=== PATIENT | female | born 1970 ===

== ENCOUNTER 2023-03-02 05:51 | Day surgery (SDC) | payer OTHER ==
[2023-02-26 12:19] VITALS: BMI 37.3
[2023-03-02] MEDS ORDERED: Betamet Acet/Betamet Na Ph 30 MG/5 ML VIAL ONE (06:15)
[2023-03-02] MEDS ORDERED: Bupivacaine PF 0.5% 30 ML VIAL ONE (06:15)
[2023-03-02] MEDS ORDERED: Neomycin-Polymyxin 1 ML AMP ONE (06:15)
[2023-03-02] MEDS ORDERED: Bacitracin Zinc Ointment 30 gm TUBE ONE (06:15)
[2023-03-02] MEDS ORDERED: Sodium Chloride 0.9% 100 ML ONE (07:01)
[2023-03-02] MEDS ORDERED: CEFAZOLIN 2 GM VIAL ONE (07:01)
[2023-03-02] MEDS ORDERED: Ondansetron PF 4 MG/2 ML Vial ONE (07:12)
[2023-03-02] MEDS ORDERED: Lidocaine 1% PF 5 ML VIAL ONE (07:12)
[2023-03-02] MEDS ORDERED: PROPOFOL 200 MG/20 ML VIAL ONE (07:12)
[2023-03-02] MEDS ORDERED: ePHEDrine Sulfate 50 MG/10 ML VIAL ONE (07:12)
== END 2023-03-02 10:00 ==
LOC: SDC 05:51
PROVIDERS: ATTEND Orthopaedic Surgery Hand Surgery
PROC: 0LN70ZZ Release Right Hand Tendon, Open Approach (ICD-10-PCS; principal; 2023-03-02)
DX: M65.311 Trigger thumb, right thumb (principal); M65.321 Trigger finger, right index finger; M65.331 Trigger finger, right middle finger; M65.341 Trigger finger, right ring finger; M65.841 Other synovitis and tenosynovitis, right hand; M67.441 Ganglion, right hand; E11.9 Type 2 diabetes mellitus without complications; I10 Essential (primary) hypertension; K21.9 Gastro-esophageal reflux disease without esophagitis; E78.5 Hyperlipidemia, unspecified; Z79.1 Long term (current) use of non-steroidal anti-inflammatories (NSAID); Z79.4 Long term (current) use of insulin; Z79.82 Long term (current) use of aspirin; Z79.84 Long term (current) use of oral hypoglycemic drugs; Z79.899 Other long term (current) drug therapy
CPT/HCPCS: 36416; J0702; J2405; J2704; J3490; S0020

== ENCOUNTER 2023-06-17 06:14 | Day surgery (SDC) | payer OTHER ==
[2023-06-15 15:25] VITALS: BMI 41.1
[2023-06-17] MEDS ORDERED: Lidocaine 1% PF 5 ML VIAL ONE (08:04)
[2023-06-17] MEDS ORDERED: PROPOFOL 200 MG/20 ML VIAL ONE (08:04)
== END 2023-06-17 09:35 | disposition home or self-care (01) ==
LOC: SDC 06:14
PROVIDERS: ATTEND Internal Medicine
PROC: 0D758ZZ Dilation of Esophagus, Via Natural or Artificial Opening Endoscopic (ICD-10-PCS; principal; 2023-06-17)
PROC: 0DB68ZX Excision of Stomach, Via Natural or Artificial Opening Endoscopic, Diagnostic (ICD-10-PCS; principal; 2023-06-17)
PROC: 0DBN8ZX Excision of Sigmoid Colon, Via Natural or Artificial Opening Endoscopic, Diagnostic (ICD-10-PCS; principal; 2023-06-17)
DX: K21.9 Gastro-esophageal reflux disease without esophagitis (principal); K64.8 Other hemorrhoids; K52.9 Noninfective gastroenteritis and colitis, unspecified; R13.10 Dysphagia, unspecified; D50.9 Iron deficiency anemia, unspecified; F41.9 Anxiety disorder, unspecified; F32.A Depression, unspecified; E11.9 Type 2 diabetes mellitus without complications; Z98.51 Tubal ligation status; Z90.710 Acquired absence of both cervix and uterus; Z90.49 Acquired absence of other specified parts of digestive tract; Z79.82 Long term (current) use of aspirin; Z86.010 Personal history of colon polyps; Z79.899 Other long term (current) drug therapy; Z87.891 Personal history of nicotine dependence
CPT/HCPCS: 36416; 88305; J2704

== ENCOUNTER 2023-09-27 16:37 | Observation (INO) | payer OTHER ==
[~2023-09-27 16:37] MED LIST: Iopamidol-370 76% 500 ML MDV (1 ML CHARGE) ONE
[2023-09-27 18:13] LABS: #Monocytes 0.3 thou/uL (0.11-0.59); #Neutrophils 9.4 thou/uL (1.40-6.50); %Basophils 0.3 % (0.0-1.0); %Eosinophils 0.1 % (0.0-10.0); %Lymphocytes 16.7 % (21.0-51.0); %Monocytes 2.4 % (0.0-10.0); %Neutrophils 79.8 % (42.0-75.0); Hematocrit 39.5 % (36.0-47.0); Hemoglobin 12.5 g/dL (12.0-16.0); Mean Corpuscular HGB CONC 31.6 g/dL (32.0-36.0); Mean Corpuscular Hemoglobin 25.8 pg (27.0-31.0); Mean Corpuscular Volume 81.6 fl (78.0-98.0); Mean Platelet Volume 10.2 fL (7.4-10.4); Platelet Count 421 10x3/uL (130-400); RBC Distribution Width 15.6 % (11.5-14.5); Red Blood Cell (RBC) Count 4.84 mill/uL (4.20-5.40); White Blood Cell (WBC) Count 11.7 10x3/uL (4.8-10.8)
[2023-09-27 18:38] LABS: Troponin I Less than 0.010 ng/mL (< 0.028)
[2023-09-27 18:47] LABS: ALT (SGPT) 22 U/L (8-55); AST (SGOT) 15 U/L (5-34); Albumin 4.9 g/dL (3.5-5.0); Alkaline Phosphatase 56 U/L (40-110); Anion Gap 17 mmol/L (10-20); BUN (Urea Nitrogen) 17 mg/dL (9.8-20.1); Bilirubin, Total 0.4 mg/dL (0.2-1.2); Calc. Creatinine Clearance 0 mL/min (70-130); Calcium 10.4 mg/dL (7.8-10.44); Carbon Dioxide 21 mmol/L (22-29); Chloride 105 mmol/L (98-107); Estimated GFR 87; Globulin 2.5 g/dL (2.4-3.5); Glucose 156 mg/dL (70-105); Potassium 4.1 mmol/L (3.5-5.1); Protein, Total 7.4 g/dL (6.0-8.3); Sodium 139 mmol/L (136-145)
[2023-09-27] MEDS ORDERED: Nitroglycerin 0.4 MG TAB (25 Tab Bottle) SL PRN (20:25)
[2023-09-27] MEDS ORDERED: Ondansetron PF 4 MG/2 ML Vial IVP PRN (20:25)
[2023-09-27] MEDS ORDERED: Ondansetron ODT 4 MG TAB PO PRN (20:25)
[2023-09-27] MEDS ORDERED: Acetaminophen 325 MG TAB PO PRN (20:25)
[2023-09-27] MEDS ORDERED: Acetaminophen 650 MG Suppository PR PRN (20:25)
[2023-09-27] MEDS ORDERED: Glucagon 1 MG/ML KIT IM PRN (21:18)
[2023-09-27] MEDS ORDERED: HumaLOG 300 UNITS/3 ML VIAL SC PRN ×2 (21:18)
[2023-09-27] MEDS ORDERED: Dextrose 50% Abboject 50 ML SYRINGE SLOW IVP PRN (21:18)
[2023-09-27] MEDS ORDERED: Dextrose 5% in Water 1,000 ML IV PRN (21:18)
[2023-09-27 21:24] VITALS: BMI 38.6
[2023-09-27 21:32] LABS: Troponin I Less than 0.010 ng/mL (< 0.028)
[2023-09-28] MEDS ORDERED: Sertraline 100 MG TAB PO SCH ×2 (00:45→21:00)
[2023-09-28] MEDS ORDERED: Pramipexole Di-HCl 1 MG TAB PO SCH ×2 (00:45→21:00)
[2023-09-28] MEDS ORDERED: Atorvastatin Calcium 40 MG TAB PO SCH ×2 (00:45→21:00)
[2023-09-28 01:00] LABS: Troponin I Less than 0.010 ng/mL (< 0.028)
[2023-09-28] MEDS ORDERED: Atorvastatin Calcium 40 MG TAB ONE (01:06)
[2023-09-28 05:10] LABS: #Basophils 0.1 thou/uL (0.0-0.2); #Eosinphils 0.2 thou/uL (0.0-0.7); #Monocytes 0.5 thou/uL (0.11-0.59); #Neutrophils 7.1 thou/uL (1.40-6.50); %Basophils 0.4 % (0.0-1.0); %Eosinophils 1.3 % (0.0-10.0); %Lymphocytes 33.4 % (21.0-51.0); %Monocytes 4.2 % (0.0-10.0); %Neutrophils 60.3 % (42.0-75.0); Hematocrit 37.9 % (36.0-47.0); Hemoglobin 11.8 g/dL (12.0-16.0); Mean Corpuscular HGB CONC 31.1 g/dL (32.0-36.0); Mean Corpuscular Hemoglobin 25.6 pg (27.0-31.0); Mean Corpuscular Volume 82.2 fl (78.0-98.0); Platelet Count 375 10x3/uL (130-400); RBC Distribution Width 15.7 % (11.5-14.5); Red Blood Cell (RBC) Count 4.61 mill/uL (4.20-5.40); White Blood Cell (WBC) Count 11.9 10x3/uL (4.8-10.8)
[2023-09-28 05:38] LABS: Anion Gap 13 mmol/L (10-20); BUN (Urea Nitrogen) 18 mg/dL (9.8-20.1); Calc. Creatinine Clearance 140 mL/min (70-130); Carbon Dioxide 27 mmol/L (22-29); Chloride 104 mmol/L (98-107); Estimated GFR 97; Glucose 117 mg/dL (70-105); Potassium 3.7 mmol/L (3.5-5.1); Sodium 140 mmol/L (136-145)
[2023-09-28] MEDS ORDERED: Aspirin Chewable 81 MG TAB PO SCH (09:00)
[2023-09-28] MEDS ORDERED: Aspirin 81 mg Enteric Coated Tablet PO SCH (09:00)
[2023-09-28] MEDS ORDERED: Lisinopril 5 MG TAB PO SCH (09:00)
[2023-09-28] MEDS ORDERED: Fenofibrate Nanocrystallized 145 MG TAB PO SCH (09:00)
[2023-09-28] MEDS ORDERED: Lisinopril 10 MG TAB ONE (10:19)
[2023-09-28] MEDS ORDERED: Aspirin Chewable 81 MG TAB ONE (10:19)
[2023-09-28 11:23] VITALS: BP 105/59; TEMP 98.3
== END 2023-09-28 11:18 | disposition home or self-care (01) ==
LOC: ERS 16:37 → ERHOLD 20:30
PROVIDERS: ADMIT Student in an Organized Health Care Education/Training Program; ATTEND Internal Medicine
DX: R07.89 Other chest pain (principal); E11.9 Type 2 diabetes mellitus without complications; I10 Essential (primary) hypertension; K21.9 Gastro-esophageal reflux disease without esophagitis; E78.5 Hyperlipidemia, unspecified; Z79.82 Long term (current) use of aspirin; Z79.4 Long term (current) use of insulin; Z79.899 Other long term (current) drug therapy; Z79.84 Long term (current) use of oral hypoglycemic drugs; Z90.710 Acquired absence of both cervix and uterus; Z90.49 Acquired absence of other specified parts of digestive tract
CPT/HCPCS: 36415; 36416; 71045; 71275; 80048; 80053; 84484; 85025; 93005; G0378; Q9967